=== PATIENT | female | born 1980 | race Caucasian/White ===

== ENCOUNTER 2017-07-14 14:16 | Emergency (ER) | payer OTHER ==
--- NOTE | 2017-07-14 14:23 | ED Physician Documentation ---
PD HPI NVD - History obtained from History obtained from: Patient - History of Present Illness Timing - onset: How many days ago (2) Timing - duration: Days (2) Timing - details: Abrupt onset, Still present (though improving today, with still mild symtpoms.) Associated symptoms: Abdominal pain (crampy intermittent), Loss of appetite. No : Fever, Hematemesis, Melena, Near syncope / syncope Contributing factors: No: Sick contact, Bad food, Travel, Recent antibiotics Worsened by: Eating Similar symptoms before: Has not had sx before Recently seen: Not recently seen Review of Systems Constitutional: reports: Myalgias. denies: Fever, Chills Nose: denies: Rhinorrhea / runny nose, Congestion Throat: denies: Sore throat Cardiac: denies: Chest pain / pressure, Palpitations Respiratory: denies: Dyspnea, Cough GI: reports: Abdominal Pain, Nausea, Vomiting, Diarrhea. denies: Hematemesis, Bloody / black stool : denies: Dysuria, Frequency PD PAST MEDICAL HISTORY - Past Medical History Cardiovascular: None Respiratory: None Neuro: None GI: GERD - Past Surgical History Past Surgical History: Yes - Present Medications Home Medications: Ambulatory Orders Medication Instructions Recorded Confirmed Amoxicillin 500 mg PO TID #20 capsule 02/27/16 HYDROcod/ACETAM 5/325 [Ava 5/325] 1 - 2 ea PO Q6H PRN #15 tablet 02/27/16 raNITIdine HCl [Ranitidine HCl] 02/27/16 Diphenoxylate HCl/Atropine 1 each PO Q6H PRN #15 tablet 07/14/17 [Diphenoxylate-Atrop 2.5-0.025] HYDROcod/ACETAM 5/325 [Ava 5/325] 1 tab PO Q6H PRN #12 tablet 07/14/17 Ondansetron Odt [Zofran] 4 mg TL Q6H PRN #10 tablet 07/14/17 - Allergies Allergies/Adverse Reactions: Allergies Allergy/AdvReac Type Severity Reaction Status Date / Time No Known Drug Allergies Allergy Verified 07/14/17 14:28 - Social History Does the pt smoke?: Yes Smoking Status: Current every day smoker Does the pt drink ETOH?: Yes Does the pt have substance abuse?: No - POLST Patient has POLST: No PD ED PE NORMAL - Vitals Vital signs reviewed: Yes - General General: Alert and oriented X 3, No acute distress, Well developed/nourished - HEENT HEENT: Ears normal, Moist mucous membranes, Pharynx benign - Neck Neck: Supple, no meningeal sign, No adenopathy - Cardiac Cardiac: RRR, No murmur - Respiratory Respiratory: Clear bilaterally - Abdomen Abdomen: Normal bowel sounds, Soft, Non tender, Non distended - Back Back: No CVA TTP - Derm Derm: Normal color, Warm and dry - Neuro Neuro: Alert and oriented X 3, No motor deficit, Normal speech Results - Vitals Vitals: Oxygen O2 Source Room air PD MEDICAL DECISION MAKING - ED course Complexity details: considered differential (patient feeling improved today with some symptoms and is okay with PO meds and Toradol. Does not feel she needs IV. ), d/w patient Departure - Departure Disposition: 01 Home, Self Care Clinical Impression: Nausea vomiting and diarrhea Condition: Stable Record reviewed to determine appropriate education?: Yes Instructions: ED Nausea Vomiting Prescriptions: Diphenoxylate HCl/Atropine [Diphenoxylate-Atrop 2.5-0.025] 1 each PO Q6H PRN # 15 tablet PRN Reason: Diarrhea HYDROcod/ACETAM 5/325 [Ava 5/325] 1 tab PO Q6H PRN #12 tablet PRN Reason: Pain Ondansetron Odt [Zofran] 4 mg TL Q6H PRN #10 tablet PRN Reason: Nausea / Vomiting Comments: Presuming this is a food poisoning or stomach flu then this should last just a couple of days. Use ondansetron if needed for nausea and diphenoxylate if needed for diarrhea. Add Tylenol or hydrocodone if needed for cramps and pains. Drink lots of fluids and rehydrate slowly. [place] food initially and progress as able. Recheck if not improved over another 1-2 days at most. Return if worsening pain, pain localizing to more particular area, high fevers, bloody stool, other concerns. Discharge Date/Time: 07/14/17 15:29
[2017-07-14 14:28] VITALS: BP 140/91
[2017-07-14] MEDS ORDERED: KETOROLAC 60 MG/2 ML VIAL IM STA (14:52)
[2017-07-14] MEDS ORDERED: DIPHENOX/ATROPINE 2.5/0.025 MG TABLET PO STA (14:52)
[2017-07-14] MEDS ORDERED: ONDANSETRON ODT 4 MG TABLET TL STA (14:52)
[2017-07-14] MEDS ORDERED: DIPHENOX/ATROPINE 2.5/0.025 MG TABLET PO ONE (15:27)
[2017-07-14] MEDS ORDERED: ONDANSETRON ODT 4 MG TABLET ONE (15:28)
[2017-07-14] MEDS ORDERED: KETOROLAC 30 MG/ML VIAL ONE (15:28)
== END 2017-07-14 15:29 | disposition home or self-care (01) ==
LOC: ED 14:16
DX: R10.9 Unspecified abdominal pain (principal); R11.2 Nausea with vomiting, unspecified; R19.7 Diarrhea, unspecified; K21.9 Gastro-esophageal reflux disease without esophagitis; F17.200 Nicotine dependence, unspecified, uncomplicated
CPT/HCPCS: 96372; 99283; 99284; A9270; Q0162

== ENCOUNTER 2017-12-18 18:21 | Emergency (ER) | payer OTHER ==
[2017-12-18 18:32] VITALS: BP 136/81
[2017-12-18] MEDS ORDERED: AZITHROMYCIN 250 MG TABLET PO STA (20:22)
--- NOTE | 2017-12-18 20:24 | ED Physician Documentation ---
PD HPI HEENT - Stated complaint Stated Complaint: POSS EAR INF - Chief complaint Chief Complaint: Heent - History obtained from History obtained from: Patient - History of Present Illness Timing - duration: Days (2) Timing - details: Still present Location: Right ear Associated symptoms: Headache Similar symptoms before: Has not had sx before - Treatment prior to arrival Treatment prior to arrival: She has taken Tylenol and ibuprofen without relief. - Additional information Additional information: The patient is a 37-year-old female who presents with right earache that started 2 days ago and has become worse today. She reports associated headache. She denies fever, sore throat, cough, or vomiting. She denies history of similar symptoms in the past. She has been using Tylenol and ibuprofen without relief. Review of Systems Constitutional: denies: Fever Eyes: denies: Irritation Ears: reports: Ear pain (Right ear.) Nose: denies: Congestion Throat: denies: Sore throat Cardiac: denies: Chest pain / pressure Respiratory: denies: Dyspnea, Cough GI: denies: Abdominal Pain, Nausea, Vomiting : denies: Dysuria Skin: denies: Rash Musculoskeletal: denies: Neck pain, Back pain Neurologic: reports: Headache (mild). denies: Focal weakness, Numbness PD PAST MEDICAL HISTORY - Past Medical History Cardiovascular: None Respiratory: None Neuro: None GI: GERD - Past Surgical History Past Surgical History: Yes - Present Medications Home Medications: Ambulatory Orders Medication Instructions Recorded Confirmed raNITIdine HCl [Ranitidine HCl] 02/27/16 Azithromycin [Zithromax] 250 mg PO DAILY #6 tablet 12/18/17 Loratadine [Claritin] 12/18/17 - Allergies Allergies/Adverse Reactions: Allergies Allergy/AdvReac Type Severity Reaction Status Date / Time No Known Drug Allergies Allergy Verified 07/14/17 14:28 - Social History Does the pt smoke?: Yes Smoking Status: Current every day smoker Does the pt drink ETOH?: Yes Does the pt have substance abuse?: No - POLST Patient has POLST: No PD ED PE NORMAL - Vitals Vital signs reviewed: Yes (borderline hypertension initially.) - General General: Alert and oriented X 3, Well developed/nourished - HEENT HEENT: Atraumatic, EOMI, Pharynx benign, Other (There is mild erythema of the right tympanic membrane. Left tympanic membrane is clear.) - Neck Neck: Supple, no meningeal sign, No adenopathy, No JVD - Cardiac Cardiac: RRR, No murmur - Respiratory Respiratory: No respiratory distress, Clear bilaterally - Abdomen Abdomen: Soft, Non tender - Back Back: No CVA TTP - Derm Derm: No rash - Extremities Extremities: No edema, No calf tenderness / cord - Neuro Neuro: Alert and oriented X 3, Normal speech Results - Vitals Vitals: Vital Signs - 24 hr 12/18/17 18:26 Temperature 36.3 C L Heart Rate 89 Respiratory 16 Rate Blood Pressure 136/81 H O2 Saturation 98 Oxygen O2 Source Room air PD MEDICAL DECISION MAKING - ED course Complexity details: considered differential, d/w patient ED course: The patient's presentation is most consistent with acute right otitis media. Her clinical assessment does not suggest meningitis, pharyngitis, peritonsillar abscess, or mastoiditis. Treatment in the emergency department included administration of Zithromax 500 mg orally. She is being discharged with prescription for Zithromax. I discussed with her the expected course of illness , antibiotic treatment and outpatient follow-up, as well as potentially worrisome signs or symptoms that should prompt reevaluation in the emergency department. Departure - Departure Disposition: 01 Home, Self Care Clinical Impression: Right otitis media Qualifiers: Otitis media type: suppurative Chronicity: acute Recurrence: not specified as recurrent Spontaneous tympanic membrane rupture: without spontaneous rupture Qualified Code(s): H66.001 - Acute suppurative otitis media without spontaneous rupture of ear drum, right ear Condition: Stable Instructions: ED Otitis Media Acute Adult Follow-Up: [facility] [Provider Group] Prescriptions: Azithromycin [Zithromax] 250 mg PO DAILY #6 tablet Comments: Take Zithromax daily as prescribed. You can use ibuprofen, up to 800 mg 3 times daily. He can also use Tylenol up to 650 mg every 4 hours if needed for pain or discomfort. Follow up with your primary physician within 2 weeks. Call to schedule appointment. Return to the emergency department if you develop increasing headache, increasing pain, or otherwise worsening symptoms. Discharge Date/Time: 12/18/17 20:30
== END 2017-12-18 20:30 | disposition home or self-care (01) ==
LOC: ED 18:21
DX: H66.001 Acute suppurative otitis media without spontaneous rupture of ear drum, right ear (principal); F17.200 Nicotine dependence, unspecified, uncomplicated
CPT/HCPCS: 99283; A9270

== ENCOUNTER 2019-01-17 01:26 | Emergency (ER) | payer OTHER ==
--- NOTE | 2019-01-17 01:46 | ED Physician Documentation ---
PD HPI ABD PAIN - Stated complaint Stated Complaint: ABD PX - Chief complaint Chief Complaint: Abd Pain - History obtained from History obtained from: Patient - History of Present Illness Timing - onset: Last night (about 8 pm) Timing - duration: Hours (5-6) Timing - details: Abrupt onset, Still present Quality: Sharp, Pain Location: RUQ Radiation: Upper back Improved by: No: Laying still, Meds (tried Ibuprofen without improvement) Worsened by: Moving, Palpation. No: Breathing Associated symptoms: Nausea, Vomiting. No: Fever, Diarrhea, Constipation, Dysuria Similar symptoms before: Has not had sx before Recently seen: Not recently seen Review of Systems Constitutional: denies: Fever Nose: denies: Rhinorrhea / runny nose, Congestion Throat: denies: Sore throat Cardiac: denies: Chest pain / pressure Respiratory: denies: Cough GI: reports: Abdominal Pain, Nausea, Vomiting. denies: Abdominal Swelling, Constipation, Diarrhea, Hematemesis : denies: Dysuria, Frequency, Discharge, Missed period Skin: denies: Rash Neurologic: denies: Focal weakness, Near syncope Endocrine: denies: Weight loss Immunocompromised: denies: Immunocompromised PD PAST MEDICAL HISTORY - Past Medical History Cardiovascular: None Respiratory: None GI: GERD - Past Surgical History Past Surgical History: Yes - Present Medications Home Medications: Ambulatory Orders Medication Instructions Recorded Confirmed raNITIdine HCl [Ranitidine HCl] 02/27/16 Azithromycin [Zithromax] 250 mg PO DAILY #6 tablet 12/18/17 Loratadine [Claritin] 12/18/17 Dicyclomine [Bentyl] 10 mg PO QID PRN #15 capsule 01/17/19 Ondansetron Odt [Zofran] 4 mg TL Q6H PRN #10 tablet 01/17/19 Oxycodone HCl/Acetaminophen 1 each PO Q6H PRN #14 tablet 01/17/19 [Percocet 5-325 mg Tablet] - Allergies Allergies/Adverse Reactions: Allergies Allergy/AdvReac Type Severity Reaction Status Date / Time No Known Drug Allergies Allergy Verified 07/14/17 14:28 - Social History Does the pt smoke?: Yes Smoking Status: Current every day smoker Does the pt drink ETOH?: Yes Does the pt have substance abuse?: No - POLST Patient has POLST: No PD ED PE NORMAL - Vitals Vital signs reviewed: Yes - General General: Alert and oriented X 3, Well developed/nourished, Other (appears uncomfortable) - HEENT HEENT: Pharynx benign - Neck Neck: Supple, no meningeal sign, No adenopathy - Cardiac Cardiac: RRR, No murmur - Respiratory Respiratory: Clear bilaterally - Abdomen Abdomen: Soft, No organomegaly, Other (obese, tender RUQ with positive [place] sign. No rebound but does have some percussion tenderness.) - Back Back: No CVA TTP - Derm Derm: Normal color, Warm and dry - Neuro Neuro: Alert and oriented X 3, No motor deficit, Normal speech Results - Vitals Vitals: Vital Signs - 24 hr 01/17/19 01/17/19 01:29 03:57 Temperature 36.3 C L 36.4 C L Heart Rate 87 76 Respiratory 18 18 Rate Blood Pressure 140/74 H 124/75 O2 Saturation 100 98 Oxygen O2 Source Room air - Labs Labs: Laboratory Tests 01/17/19 01/17/19 01/17/19 01:43 01:43 02:45 WBC 10.8 RBC 4.39 Hgb 12.5 Hct 36.8 L MCV 83.8 MCH 28.6 MCHC 34.1 RDW 14.3 Plt Count 283 MPV 8.1 Neut # (Auto) 8.5 H Lymph # (Auto) 1.2 L [place] # (Auto) 0.6 Eos # (Auto) 0.2 Baso # (Auto) 0.3 H Absolute Nucleated RBC 0.00 Nucleated RBC % 0.0 Sodium 138 Potassium 4.0 Chloride 102 Carbon Dioxide 25 Anion Gap 11.0 BUN 15 Creatinine 0.8 Estimated GFR (MDRD) 80 L Glucose 151 H Calcium 9.1 Total Bilirubin 0.4 AST 16 ALT 13 Alkaline Phosphatase 92 Total Protein 7.4 Albumin 3.9 Globulin 3.5 Albumin/Globulin Ratio 1.1 Lipase 44 Urine Color YELLOW Urine Clarity CLEAR Urine pH 7.0 Ur Specific [place] 1.010 Urine Protein NEGATIVE Urine Glucose (UA) NEGATIVE Urine Ketones NEGATIVE Urine Occult Blood NEGATIVE Urine Nitrite NEGATIVE Urine Bilirubin NEGATIVE Urine Urobilinogen 0.2 (NORMAL) Ur Leukocyte Esterase NEGATIVE Ur Microscopic Review NOT INDICATED Urine Culture Comments NOT INDICATED Urine HCG, Qual 01/17/19 02:45 WBC RBC Hgb Hct MCV MCH MCHC RDW Plt Count MPV Neut # (Auto) Lymph # (Auto) [place] # (Auto) Eos # (Auto) Baso # (Auto) Absolute Nucleated RBC Nucleated RBC % Sodium Potassium Chloride Carbon Dioxide Anion Gap BUN Creatinine Estimated GFR (MDRD) Glucose Calcium Total Bilirubin AST ALT Alkaline Phosphatase Total Protein Albumin Globulin Albumin/Globulin Ratio Lipase Urine Color Urine Clarity Urine pH Ur Specific [place] 1.010 Urine Protein Urine Glucose (UA) Urine Ketones Urine Occult Blood Urine Nitrite Urine Bilirubin Urine Urobilinogen Ur Leukocyte Esterase Ur Microscopic Review Urine Culture Comments Urine HCG, Qual NEGATIVE - Rads (name of study) RUQ Abd U/S Radiology: Prelim report reviewed (gallbladder wall thickening with gallstones. Duct mildly dilated 5 mm), See rad report PD MEDICAL DECISION MAKING - ED course Complexity details: re-evaluated patient (Pain improved and about gone after meds. Labs are good. Presume had small stone/sludge causing obstruction which is now better. Discussed with her either temp better and to return if worse again, or seee pMD if recurrent or not fully improved. ), considered differential (Consider gallbladder, pancreatitis, duodenitis, gastritis. Will get labs and U/S. To give IV meds for pain and nausea. ), d/w patient Departure - Departure Disposition: 01 Home, Self Care Clinical Impression: Biliary colic Abdominal pain Qualifiers: Abdominal location: right upper quadrant Qualified Code(s): R10.11 - Right upper quadrant pain Cholecystitis, acute with cholelithiasis Qualifiers: Biliary obstruction: without biliary obstruction Qualified Code(s): K80.00 - Calculus of gallbladder with acute cholecystitis without obstruction Condition: Stable Record reviewed to determine appropriate education?: Yes Instructions: ED Gallstone W Biliary Colic Follow-Up: [facility] [Primary Care Provider] - Prescriptions: Dicyclomine [Bentyl] 10 mg PO QID PRN #15 capsule PRN Reason: Abdominal Pain Ondansetron Odt [Zofran] 4 mg TL Q6H PRN #10 tablet PRN Reason: Nausea / Vomiting Oxycodone HCl/Acetaminophen [Percocet 5-325 mg Tablet] 1 each PO Q6H PRN #14 tablet PRN Reason: pain Comments: Your ultrasound shows some gallstones and also some thickening of the gallbladder and slight enlargement of the bile duct. This suggests some sludging or passing of a small stone into the bile duct and inflammation of the gallbladder. Given that your pain is better and your blood tests are good, it does not sound like it is still clogged. Stay well-hydrated through the day today. Avoid fatty foods. Use some Tylenol or ibuprofen if needed for mild pains. Ondansetron if needed for nausea. Percocet if needed for worse pain. You could also try dicyclomine which is an antispasmodic, to help with stomach pains from the gallbladder spasms. Follow-up with your primary care if recurrent pains over the next few days return to the ER sooner if much worse. Also return if any fevers, repetitive vomiting, other concerns. If this episode improves and stays well, then you would just see how you do in the near future regarding other episodes to decide whether or to discuss with the surgeon about gallbladder removal. Discharge Date/Time: 01/17/19 04:00
[2019-01-17 01:54] LABS: BASOPHILS # (AUTO) 0.3 10^3/uL (0.0-0.1); BASOPHILS % (AUTO) 2.3 %; EOSINOPHILS # (AUTO) 0.2 10^3/uL (0.0-0.7); EOSINOPHILS % (AUTO) 1.9 %; HGB - HEMOGLOBIN 12.5 g/dL (12.0-16.0); LYMPHOCYTES # (AUTO) 1.2 10^3/uL (1.5-3.5); LYMPHOCYTES % (AUTO) 11.2 %; MEAN CORPUSCULAR HEMOGLOBIN 28.6 pg (27.0-31.0); MEAN CORPUSCULAR HGB CONC 34.1 g/dL (32.0-36.0); MEAN CORPUSCULAR VOLUME 83.8 fL (81.0-99.0); MEAN PLATELET VOLUME 8.1 fL (7.9-10.8); MONOCYTES # (AUTO) 0.6 10^3/uL (0.0-1.0); MONOCYTES % (AUTO) 5.2 %; NEUTROPHILS # (AUTO) 8.5 10^3/uL (1.5-6.6); NEUTROPHILS % (AUTO) 79.4 %; PLT - PLATELET COUNT 283 10^3/uL (130-450); RED BLOOD COUNT 4.39 10^6/uL (4.20-5.40); RED CELL DISTRIBUTION WIDTH 14.3 % (12.0-15.0); WHITE BLOOD COUNT 10.8 x10^3/uL (4.8-10.8)
[2019-01-17] MEDS ORDERED: SODIUM CHLORIDE 0.9% 1,000 ML IV ONE (01:57)
[2019-01-17] MEDS ORDERED: KETOROLAC 15 MG/ML VIAL IVP STA (01:57)
[2019-01-17] MEDS ORDERED: MORPHINE 10 MG/ML VIAL IVP STA (01:57)
[2019-01-17] MEDS ORDERED: ONDANSETRON 4 MG/2 ML VIAL IVP STA (01:57)
[2019-01-17] MEDS ORDERED: FAMOTIDINE 20 MG/2 ML VIAL IVP STA (01:58)
[2019-01-17 02:04] LABS: ALBUMIN 3.9 g/dL (3.2-5.5); ALBUMIN/GLOBULIN RATIO 1.1 (1.0-2.2); BILIRUBIN,TOTAL 0.4 mg/dL (0.2-1.0); CALCIUM 9.1 mg/dL (8.5-10.3); CREATININE 0.8 mg/dL (0.4-1.0); TOTAL PROTEIN 7.4 g/dL (6.7-8.2)
[2019-01-17 02:50] LABS: BILIRUBIN,URINE NEGATIVE (NEGATIVE); GLUCOSE, URINE (UA) NEGATIVE (NEGATIVE); KETONES,URINE (UA) NEGATIVE (NEGATIVE); LEUKOCYTE ESTERASE, URINE NEGATIVE (NEGATIVE); NITRITE,URINE NEGATIVE (NEGATIVE); OCCULT BLOOD,URINE NEGATIVE (NEGATIVE); PROTEIN,URINE NEGATIVE (NEGATIVE); UROBILINOGEN,URINE 0.2 (NORMAL) E.U./dL (NORMAL)
--- NOTE | 2019-01-17 02:51 | Ultrasound Report ---
Reason: RUQ pain, radiating to back; onset this evening Procedure Date: 01/17/2019 Accession Number: [id number] / [id number] Procedure: US - Abdomen Limited CPT Code: FULL RESULT: EXAM: ABDOMEN ULTRASOUND LIMITED, RUQ EXAM DATE: 01/17/2019 02:25 AM. CLINICAL HISTORY: RUQ pain, radiating to back; onset this evening. COMPARISON: None. TECHNIQUE: Real-time scanning was performed with static images obtained. FINDINGS: Liver: Liver is enlarged and echogenic, compatible with fatty infiltration. It measures 21.8 cm. Main portal vein flow: Hepatopetal. Gallbladder: Cholelithiasis. Gallbladder wall thickening. Biliary System: CBD measures 7 mm. No intrahepatic or extrahepatic ductal dilatation. Other: No free fluid. No right hydronephrosis. IMPRESSION: Cholelithiasis, with gallbladder wall thickening and prominence of the common bile duct, likely representing acute cholecystitis with possible choledocholithiasis. Fatty infiltration of the liver. RADIA
[2019-01-17 02:52] LABS: CLARITY,URINE CLEAR (CLEAR); HCG UR QUAL NEGATIVE
[2019-01-17] MEDS ORDERED: ONDANSETRON ODT 4 MG Prepack 2 TL PRN (03:40)
[2019-01-17] MEDS ORDERED: oxyCODONE/ACET 5/325 Prepack 4 PO STA (03:40)
[2019-01-17 03:58] VITALS: BP 124/75
== END 2019-01-17 04:00 | disposition home or self-care (01) ==
LOC: ED 01:26
DX: K80.00 Calculus of gallbladder with acute cholecystitis without obstruction (principal); F17.200 Nicotine dependence, unspecified, uncomplicated
CPT/HCPCS: 36415; 76705; 80053; 81001; 81003; 81025; 83690; 85025; 87086; 99283; 99284

== ENCOUNTER 2020-05-26 13:48 | Emergency (ER) | payer OTHER ==
--- NOTE | 2020-05-26 15:50 | ED Physician Documentation ---
PD HPI SKIN - Stated complaint Stated Complaint: ABCESS ON BACK - History obtained from History obtained from: Patient - History of Present Illness Timing - onset: How many days ago (3) Timing - duration: Days (3) Timing - details: Gradual onset, Still present Location: Other (right buttock) Quality / character: Painful, Swelling. No: Draining (was not draining until in waiting room, started to drain some.) Associated symptoms: No: Fever, Myalgias, N/V/D Recently seen: Not recently seen Review of Systems Constitutional: denies: Fever, Chills GI: denies: Nausea, Vomiting, Diarrhea Skin: reports: Lesions PD PAST MEDICAL HISTORY - Past Medical History Cardiovascular: None Respiratory: None Endocrine/Autoimmune: None GI: GERD EQUITIES TRADER: Other : None HEENT: None Psych: None Musculoskeletal: None Derm: None - Past Surgical History Past Surgical History: Yes - Present Medications Home Medications: Ambulatory Orders Medication Instructions Recorded Confirmed raNITIdine HCL [Ranitidine HCl] 02/27/16 Azithromycin [Zithromax] 250 mg PO DAILY #6 tablet 12/18/17 Loratadine [Claritin] 12/18/17 Dicyclomine [Bentyl] 10 mg PO QID PRN #15 capsule 01/17/19 Ondansetron Odt [Zofran] 4 mg TL Q6H PRN #10 tablet 01/17/19 Oxycodone HCl/Acetaminophen 1 each PO Q6H PRN #14 tablet 01/17/19 [Percocet 5-325 mg Tablet] - Allergies Allergies/Adverse Reactions: Allergies Allergy/AdvReac Type Severity Reaction Status Date / Time No Known Drug Allergies Allergy Verified 07/14/17 14:28 - Social History Does the pt smoke?: Yes Smoking Status: Current every day smoker Does the pt drink ETOH?: Yes Does the pt have substance abuse?: No - Immunizations Immunizations: TDAP current <10years, Other immun current - POLST Patient has POLST: No PD ED PE NORMAL - Vitals Vital signs reviewed: Yes - General General: Alert and oriented X 3, Well developed/nourished - Neck Neck: Supple, no meningeal sign, No adenopathy - Cardiac Cardiac: RRR, No murmur - Respiratory Respiratory: Clear bilaterally - Derm Derm: Normal color, Warm and dry - Extremities Extremities: Other (right buttock with 3-4 cm firm fluctuant and red/tender area. ) - Neuro Neuro: Alert and oriented X 3, No motor deficit, Normal speech Results - Vitals Vitals: Oxygen O2 Source Room air Procedures - Abscess I&D (location) right buttock Preparation: Lidocaine 1%, With epi Incision: Incised with scalpel, Purulent drainage, Irrigated. No: Packed, Culture obtained Other: Pt tolerated well, Dressing applied, Antibiotic prescribed PD MEDICAL DECISION MAKING - ED course Complexity details: considered differential, d/w patient Departure - Departure Disposition: 01 Home, Self Care Clinical Impression: Abscess of right buttock Condition: Stable
[2020-05-26] MEDS ORDERED: SULFAMETH/TRIMETH DS 800/160 MG TABLET PO ONE (16:10)
[2020-05-26] MEDS ORDERED: ACETAMINOPHEN 325 MG TABLET PO ONE (16:11)
[2020-05-26] MEDS ORDERED: IBUPROFEN 600 MG TABLET PO ONE (16:11)
== END 2020-05-26 16:37 | disposition home or self-care (01) ==
LOC: ED 13:48
DX: L02.31 Cutaneous abscess of buttock (principal); F17.200 Nicotine dependence, unspecified, uncomplicated
CPT/HCPCS: 10060; 99282; 99283; A9270

== ENCOUNTER 2020-07-11 13:11 | Outpatient (CLI) | payer OTHER ==
--- NOTE | 2020-07-14 13:22 | Mammography Report ---
BILATERAL DIGITAL SCREENING MAMMOGRAM 3D/2D: 07/11/2020 CLINICAL: Baseline exam. Routine screening. No prior exams were available for comparison. The tissue of both breasts is heterogeneously dense. T his may lower the sensitivity of mammography. There is an oval focal asymmetry in the right breast at 5 o'clock anterior depth. There also is a focal asymmetry in the right breast at 3 o'clock anterior depth. No other significant masses, calcifications, or other findings are seen in either breast. IMPRESSION: INCOMPLETE: NEEDS ADDITIONAL IMAGING EVALUATION The oval focal asymmetry in the right breast at 5 o'clock anterior depth is indeterminate. Additiona l views with possible ultrasound are recommended. The focal asymmetry in the right breast at 3 o'clock anterior depth is indeterminate. Additional vie ws with possible ultrasound are recommended. This exam was interpreted at Station ID: [id number]. NOTE: For mammograms, a report in lay terms will be sent to the patient. Approximately 15% of breast malignancies will not be visualized mammographically. In the management of a palpable breast mass, a negative mammogram must not discourage biopsy of a clinically suspicious lesion. Electronically Signed By: Horacio [email or web address]/[email or web address]:07/11/2020 15:07:17 ACR BI-RADS Category 0: Incomplete 3340F PARENCHYMAL PATTERN: (D) - The breast(s) demonstrate(s) heterogeneously dense fibroglandular jaylon walker. BI-RADS CATEGORY: (0) - 0 Mammo and US [id number] Immediate follow-up LATERALITY: (R)
== END 2020-07-11 13:12 | disposition home or self-care (01) ==
LOC: DI.N 13:11
DX: Z12.31 Encounter for screening mammogram for malignant neoplasm of breast (principal); R92.8 Other abnormal and inconclusive findings on diagnostic imaging of breast

== ENCOUNTER 2020-10-13 09:14 | Outpatient (CLI) | payer OTHER ==
--- NOTE | 2020-10-14 12:09 | Mammography Report ---
UNILATERAL RIGHT DIGITAL DIAGNOSTIC MAMMOGRAM 3D/2D: 10/13/2020 CLINICAL: Patient returns today to evaluate asymmetries in the right breast. Comparison is made to exam dated: 07/11/2020 mammogram - [facility]. There are sc attered fibroglandular elements in right breast. There is a focal asymmetry in the right breast at 5 o'clock anterior depth. This is less prominent. There also is a focal asymmetry in the right breast at 3 o'clock anterior depth. This is less promin ent. No other significant masses or calcifications are seen in the breast. IMPRESSION: INCOMPLETE: NEEDS ADDITIONAL IMAGING EVALUATION Possible focal asymmetry in the right breast at 5 o'clock anterior depth most likely is fibroglandula r tissue and is indeterminate. -A targeted ultrasound is recommended and will immediately follow. Possible focal asymmetry in the right breast at 3 o'clock anterior depth most likely is fibroglandula r tissue and is indeterminate. -A targeted ultrasound is recommended and will immediately follow. This exam was interpreted at Station ID: [id number]. NOTE: For mammograms, a report in lay terms will be sent to the patient. Approximately 15% of breast malignancies will not be visualized mammographically. In the management of a palpable breast mass, a negative mammogram must not discourage biopsy of a clinically suspicious lesion. Electronically Signed By: Shlomo Morris M.D. slc/:10/13/2020 12:33:21 ACR BI-RADS Category 0: Incomplete 3340F PARENCHYMAL PATTERN: (A) - The breast(s) demonstrate(s) scattered fibroglandular densities. BI-RADS CATEGORY: (0) - 0 Ultrasound [id number] Immediate follow-up LATERALITY: (B)
--- NOTE | 2020-10-14 12:09 | Ultrasound Report ---
LIMITED ULTRASOUND OF RIGHT BREAST: 10/13/2020 CLINICAL: Patient returns today to evaluate two focal asymmetries in the right breast. Comparison is made to exams dated: 10/13/2020 mammogram and 07/11/2020 mammogram - [facility]. Real-time ultrasound of the right breast 3-5 o'clock region was performed. Erickson scale images of the real-time examination were reviewed. No significant abnormalities were seen sonographically in the right breast. IMPRESSION: NEGATIVE There is no sonographic evidence of malignancy in the region of possible focal asymmetries. A 1 year screening mammogram is recommended. Exam findings were conveyed to the patient. This exam was interpreted at Station ID: [id number]. Electronically Signed By: Shlomo Morris M.D. slc/:10/13/2020 12:34:33 Ultrasound BI-RADS: 1 Negative BI-RADS CATEGORY: (1) - 1 RECOMMENDATION: (ANNUAL) - Recommend routine annual screening mammography. [id number] 1 year screening LATERALITY: (B)
== END 2020-10-13 09:15 | disposition home or self-care (01) ==
LOC: DI 09:14
PROVIDERS: ATTEND Family Medicine
DX: R92.8 Other abnormal and inconclusive findings on diagnostic imaging of breast (principal)

== ENCOUNTER 2021-01-08 08:00 | Outpatient (CLI) | payer OTHER ==
[2021-01-08 21:38] LABS: CHLAMYDIA TRACHOMATIS DNA NEGATIVE (NEGATIVE); NEISSERIA GONORRHOEAE DNA NEGATIVE (NEGATIVE); TRICHOMONAS VAGINALIS DNA NEGATIVE (NEGATIVE)
== END 2021-01-08 23:59 | disposition home or self-care (01) ==
LOC: LAB.WC 08:00
PROVIDERS: ATTEND Obstetrics & Gynecology
DX: N92.0 Excessive and frequent menstruation with regular cycle (principal); Z11.3 Encounter for screening for infections with a predominantly sexual mode of transmission
CPT/HCPCS: 87491; 87591; 87661

== ENCOUNTER 2021-01-30 15:04 | Emergency (ER) | payer OTHER ==
[2021-01-30] MEDS ORDERED: PENICILLIN VK 250 MG TABLET PO STA (15:30)
--- NOTE | 2021-01-30 15:31 | ED Physician Documentation ---
History of Present Illness - Stated complaint Stated Complaint: RIGHT SIDE TOOTH PX - Chief complaint Chief Complaint: Heent - History obtained from History obtained from: Patient - History of Present Illness Timing: Today Pain level max: 0 Pain level now: 0 - Additonal information Additional information: Patient is a 40-year-old female who presents to the emergency department with right lower molar pain that started today. She was having some pain on her upper right side a few days ago, saw her dentist and was started on azithromycin. Today she noticed swelling along the lower jawline and pain. Worse with eating and drinking. Nothing makes it better. Review of Systems Constitutional: denies: Fever, Chills Nose: denies: Rhinorrhea / runny nose Cardiac: denies: Chest pain / pressure GI: denies: Vomiting, Diarrhea Skin: denies: Rash Musculoskeletal: denies: Neck pain, Back pain Neurologic: denies: Headache PD PAST MEDICAL HISTORY - Past Medical History Cardiovascular: None Respiratory: None Endocrine/Autoimmune: None GI: GERD BUYER AGENT: Other : None HEENT: None Psych: None Musculoskeletal: None Derm: None - Past Surgical History Past Surgical History: Yes - Present Medications Home Medications: Ambulatory Orders Medication Instructions Recorded Confirmed raNITIdine HCL [Ranitidine HCl] 02/27/16 Azithromycin [Zithromax] 250 mg PO DAILY #6 tablet 12/18/17 Loratadine [Claritin] 12/18/17 Dicyclomine [Bentyl] 10 mg PO QID PRN #15 capsule 01/17/19 Ondansetron Odt [Zofran] 4 mg TL Q6H PRN #10 tablet 01/17/19 Oxycodone HCl/Acetaminophen 1 each PO Q6H PRN #14 tablet 01/17/19 [Percocet 5-325 mg Tablet] HYDROcod/ACETAM 5/325 [Spencer 5/325] 1 - 2 ea PO Q6H PRN #14 tablet 01/30/21 Penicillin V Potassium 500 mg PO Q6HR #40 tablet 01/30/21 - Allergies Allergies/Adverse Reactions: Allergies Allergy/AdvReac Type Severity Reaction Status Date / Time No Known Drug Allergies Allergy Verified 01/30/21 15:14 - Social History Does the pt smoke?: Yes Smoking Status: Current every day smoker Does the pt drink ETOH?: Yes Does the pt have substance abuse?: No - Immunizations Immunizations: TDAP current <10years, Other immun current - POLST Patient has POLST: No PD ED PE NORMAL - Vitals Vital signs reviewed: Yes - General General: Alert and oriented X 3, No acute distress - HEENT HEENT: Moist mucous membranes, Other (R lower mandible - TTP near the back molar. No abscess visible. no trismus. normal phonation. No ludwigs angina) - Neck Neck: Supple, no meningeal sign - Cardiac Cardiac: RRR, Strong equal pulses - Respiratory Respiratory: No respiratory distress, Clear bilaterally - Derm Derm: Warm and dry - Neuro Neuro: Alert and oriented X 3 - Psych Psych: Normal mood, Normal affect Results - Vitals Vitals: Vital Signs - 24 hr 01/30/21 15:10 Temperature 36.1 C L Heart Rate 90 Respiratory 16 Rate Blood Pressure 125/77 O2 Saturation 98 Oxygen O2 Source Room air PD MEDICAL DECISION MAKING - ED course Complexity details: considered differential, d/w patient ED course: Patient with dental caries and dental pain. No drainable abscess. Normal phonation. No trismus. Will place on penicillin and pain medication for home. I am prescribing a short course of short-acting opioid pain medication for this patient. 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 I have discussed that the opioids are for short term therapy only, and will not be refilled from the ED. patient counseled regarding signs and symptoms for which I believe and urgent re-evaluation would be necessary. Patient with good understanding of and agreement to plan and is comfortable going home at this time This document was made in part using voice recognition software. While efforts are made to proofread this document, sound alike and grammatical errors may occur. Departure - Departure Disposition: 01 Home, Self Care Clinical Impression: Pain, dental Condition: Good Instructions: ED Tooth Pain Follow-Up: FELICE MATT PA-C [Primary Care Provider] - Prescriptions: Penicillin V Potassium 500 mg PO Q6HR #40 tablet HYDROcod/ACETAM 5/325 [Spencer 5/325] 1 - 2 ea PO Q6H PRN #14 tablet PRN Reason: Pain Comments: Take all antibiotics until gone. Follow-up with your dentist on Tuesday for further care. Return if you worsen. I am prescribing a short course of narcotic pain medication for you. These are potentially dangerous and addictive medications that should be used carefully. These medications may constipate you. Take an hgbd-geu-czjxadv stool softener (docusate) twice daily with plenty of water while taking these medications. If you go 24 hours without a bowel movement, take oogj-gab-carolcp miralax, per package instructions. Do not drink or drive while taking these medications. If you received narcotic or sedating medications while in the emergency department, do not drive for 24 hours. Store this medication in a safe, secure place and out of reach of children. It is a violation of federal law to give or sell this medication to another person or to use in a manner other than prescribed. The ED will not refill narcotic prescriptions, including prescriptions lost or stolen. To dispose of unwanted medications: 1. [facility] at [address] in [place] has a medication drop box. They accept prescription medications (in pill form) Tuesday through Tuesday 9:00 a.m. to 5:00 p.m. 2. The [facility] [employer] accepts prescription medications (in pill form only) for disposal year round. Call for more information. 3. Contact the [facility] for the next [facility] sponsored prescription drug collection event. , [phone], or [phone];
[2021-01-30 16:32] VITALS: BP 109/70
== END 2021-01-30 16:18 | disposition home or self-care (01) ==
LOC: ED 15:04
DX: K08.89 Other specified disorders of teeth and supporting structures (principal); K02.9 Dental caries, unspecified; F17.200 Nicotine dependence, unspecified, uncomplicated
CPT/HCPCS: 99282; 99284; A9270

== ENCOUNTER 2021-02-07 07:48 | Outpatient (CLI) | payer OTHER ==
--- NOTE | 2021-02-07 18:12 | Ultrasound Report ---
PROCEDURE: Pelvic w/Transvaginal INDICATIONS: DYSMENORRHEA TECHNIQUE: Real-time scanning was performed of the pelvic organs, with image documentation. Additional endovagi nal scanning was necessary due to incomplete visualization of the adnexal and endometrial structures by transabdominal scanning. COMPARISON: None. FINDINGS: No pathologic free abdominal or pelvic fluid. Uterus: Uterus is normal in size at 8.4 x 3.6 x 5.0 cm. There is a mural left mid body fibroid measu ring 3.4 x 3.1 x 3.3 cm. The endometrium measures 9.8 mm in combined thickness. There is a small ante rior endometrial polyp versus pedunculated fibroid with a feeder vessel measuring 1.2 x 0.6 cm. Ovaries: Right ovary measures 3.5 x 2.0 x 2.2 cm. Left ovary measures 4.1 x 2.7 x 2.7 cm and contain s a simple cyst of maximum diameter of 3.3 cm. IMPRESSION: 1. 3.4 cm left uterine fibroid. 2. Endometrial polyp versus pedunculated fibroid measuring 1.2 x 0.6 cm. 3. 3.3 cm left ovarian cyst. Reviewed by: Taurus Arguello MD on 02/07/2021 5:11 PM ARSEN Approved by: Taurus Arguello MD on 02/07/2021 5:11 PM ARSEN Station ID: [id number]
== END 2021-02-07 07:49 | disposition home or self-care (01) ==
LOC: DI 07:48
PROVIDERS: ATTEND Obstetrics & Gynecology
DX: N94.6 Dysmenorrhea, unspecified (principal); N92.0 Excessive and frequent menstruation with regular cycle; D25.1 Intramural leiomyoma of uterus; N83.292 Other ovarian cyst, left side

== ENCOUNTER 2021-04-21 07:25 | Day surgery (SDC) | payer OTHER ==
--- NOTE | 2021-04-21 05:53 | HISTORY & PHYSICAL EXAMINATION ---
HPI - History of Present Illness HPI Comment/Other: I: Patient is a 40-year-old G0, P0 here for preop assessment for hysteroscopy D&C and possible polypectomy. Initially seen by Dr. Paul in December 2020 with primary complaint of infertility. Reported heavy menses at time of assessment. Monthly cycles of 5 days duration. Needs to change a pad or tampon every less than 2 hours. Passes large clots about size of a quaarter. Carried extra clothing due to accidents. Plans her life around her period. Hx of anemia. Also endorses dysmenorrhea, rated 9/10 at its worse. She states this will keep her home from work. She will utilize hot water bottle or heating pad as well as 1600 mg of Motrin. Unable to conceive in prior relationship. Pattern continuing with new partner. Endorses deep dyspareunia. Hx of thickened EMS in 2006. US on 02/07/21 shows " Uterus is normal in size at 8.4 x 3.6 x 5.0 cm. There is a mural left mid body fibroid measuring 3.4 x 3.1 x 3.3 cm. The endonnetrium measures 9.8 mm in combined thickness. There is a small anterior endometrial polyp versus pedunculated fibroid with a feeder vessel measuring 1.2 x 0.6 cm. " Desires to proceed with hysteroscopy D&C. Has lost 25# since December visit. No other changes in health hx other than as noted in HPI. Allergies: No Known Allergies Medications: ACIDOPHILUS ORAL TABLET CHEWABLE (PROBIOTIC PRODUCT) QD; Route: ORAL TURMERIC CAPSULE (TURMERIC CAPS) QD VITAMIN D3 TABLET (CHOLECALCIFEROL TABS) QD MULTIVITAMIN WOMEN ORAL TABLET (MULTIPLE VITAMINS-MINERALS) QD; Route: ORAL TRULICITY 0.75 MG/0.5ML SUBCUTANEOUS SOLUTION PEN-INJECTOR (DULAGLUTIDE) Inject 0.75mg subcutaneously once weekly for diabetes; Route: SUBCUTANEOUS CLONAZEPAM 0.5 MG ORAL TABLET (CLONAZEPAM) Take one tablet by mouth twice daily as needed; Route: ORAL METFORMIN HCL ER (OSM) 1000 MG ORAL TABLET EXTENDED RELEASE 24 HOUR (METFORMIN HCL) Take 2 tables once daily; Route: ORAL LORATADINE 10 MG ORAL TABLET (LORATADINE) Take one tablet by mouth once daily for allergies; Route: ORAL OMEPRAZOLE 40 MG ORAL CAPSULE DELAYED RELEASE (OMEPRAZOLE) QD; Route: ORAL Problems: Preoperative examination (ICD-V72.84) (PCZ07-H08.818) Endometrial polyp (ICD-621.0) (EOI61-J65.0) Menorrhagia (ICD-626.2) (WAH27-A43.0) Dysmenorrhea (ICD-625.3) (FPA56-N63.6) Std screening (ICD-V74.5) (SSW05-C60.3) Vital Signs: Patient Profile: 40 Years Old Female Height: 70.5 inches Weight: 258.6 pounds BMI: 36.71 BP sittin / 74 Cuff size: large Pt. in pain? 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 Physical Constitutional: GEN: NAD HEAD: NCAT EYES: No scleral icterus or conjunctival injection CV: RRR RESP: CTAB, normal effort ABD: S&NT/ND PSYCH: appropriate affect NEURO: alert and oriented, normal gait and coordination EXT: WWP Impression & Recommendations: Problem # 1: Preoperative examination (ICD-V72.84) (BRS54-S84.818) Reviewed risks/benefits/alternatives to hysteroscopy/polpectomy Risks include, but are not limited to, bleeding, infection, damage to neatby tissue and organs. On average, expected EBL is minimal. In the event of an unanticipated blood loss, patient is willing to undergo transfusion. Risks of blood transfusion include infection as well as transfusion reaction Risk of HIV 1/2million nationwide Risk of Hepatitis 1/1 million Risks of transfusion reaction and mgt reviewed Infection risk low given that no incisions abraham be made and we will be using physiologic orifices. Will provide IV abx in the event of uterine perforation. Damage to nearby tissue and organs was reviewed with emphasis on uterine perforation and management, which can include surgical intervention based on bleeding risk. Reviewed management of complications and efforts to avoid such outcomes but reviewed that they may occur despite our best efforts. Patient agreed to the aforementioned procedure and written informed consent was obtained. Orders: PRE OP -[id number] ([id number]) PMH/PSH - Past Medical History Cardiovascular: positive: None Respiratory: positive: None Endocrine/Autoimmune: positive: Type 2 diabetes GI: positive: GERD REAL ESTATE LOAN PROCESSOR: positive: Other : positive: None HEENT: positive: Chronic vision loss Psych: positive: Anxiety Musculoskeletal: positive: None Derm: positive: None MRSA Hx?: No - Past Surgical History General: positive: Cholecystectomy Ortho: positive: Other Social & Family Hx - Social History Does the pt smoke?: Yes Smoking Status: Current every day smoker Does the pt drink ETOH?: Yes Does the pt have substance abuse?: No Substance Use and Type: Marijuana - POLST Patient has POLST: No Meds/Allgy - Home Medications Home Medications: Ambulatory Orders Medication Instructions Recorded Confirmed Loratadine [Claritin] 10 mg PO DAILY 12/18/17 04/13/21 Biotin 10,000 mcg PO DAILY 04/13/21 04/13/21 Cholecalciferol [Vitamin D3] 25 mcg PO DAILY 04/13/21 04/13/21 Lactobacillus Combination No.4 1 each PO DAILY 04/13/21 04/13/21 [Probiotic] Metformin HCl [Glumetza] 1,000 mg PO DAILY 04/13/21 04/13/21 Omeprazole 40 mg PO DAILY 04/13/21 04/13/21 Turmeric Root Extract [Turmeric] 500 mg PO DAILY 04/13/21 04/13/21 clonazePAM [KlonoPIN] 0.5 mg PO ONCE PRN 04/13/21 04/13/21 - Allergies Allergies/Adverse Reactions: Allergies Allergy/AdvReac Type Severity Reaction Status Date / Time No Known Drug Allergies Allergy Verified 01/30/21 15:14
[~2021-04-21 07:25] MED LIST: ACETAMINOPHEN 500 MG TABLET PO ONE; CELECOXIB 100 MG CAPSULE PO ONE; GABAPENTIN 400 MG CAPSULE ONE
[2021-04-21] MEDS ORDERED: LACTATED RINGERS 1,000 ML IV ONE ×2 (07:50→09:15)
--- NOTE | 2021-04-21 08:06 | ANESTHESIA ---
Pre-Anesthesia VS, & Labs - Diagnosis menorrhagia - Procedure hysteroscopy, D&C, polypectomy Vital Signs: Temp Pulse Resp BP Pulse Ox 36.5 C 88 16 130/88 H 99 04/21/21 07:40 04/21/21 07:40 04/21/21 07:40 04/21/21 07:40 04/21/21 07:40 Height: 5 ft 11 in Weight (kg): 116.8 kg Body Mass Index: 35.9 BMI Classification: Obese - NPO >8 hours - Is Patient ?: No - Lab Results Current Lab Results: Laboratory Tests 04/21/21 07:54: POC Whole Bld Glucose 88 Home Medications and Allergies Home Medications: Ambulatory Orders Biotin 10,000 mcg PO DAILY 04/13/21 Cholecalciferol [Vitamin D3] 25 mcg PO DAILY 04/13/21 Lactobacillus Combination No.4 [Probiotic] 1 each PO DAILY 04/13/21 Metformin HCl [Glumetza] 1,000 mg PO DAILY 04/13/21 Omeprazole 40 mg PO DAILY 04/13/21 Turmeric Root Extract [Turmeric] 500 mg PO DAILY 04/13/21 clonazePAM [KlonoPIN] 0.5 mg PO ONCE PRN 04/13/21 Loratadine [Claritin] 10 mg PO DAILY 12/18/17 Biotin 10,000 mcg PO DAILY 04/13/21 Cholecalciferol [Vitamin D3] 25 mcg PO DAILY 04/13/21 Lactobacillus Combination No.4 [Probiotic] 1 each PO DAILY 04/13/21 Metformin HCl [Glumetza] 1,000 mg PO DAILY 04/13/21 Omeprazole 40 mg PO DAILY 04/13/21 Turmeric Root Extract [Turmeric] 500 mg PO DAILY 04/13/21 clonazePAM [KlonoPIN] 0.5 mg PO ONCE PRN 04/13/21 Allergies/Adverse Reactions: Allergies Allergy/AdvReac Type Severity Reaction Status Date / Time No Known Drug Allergies Allergy Verified 01/30/21 15:14 Anes History & Medical History - Anesthetic History Anesthesia Complications: reports: No previous complications - Medical History Cardiovascular: reports: None Pulmonary: reports: None Gastrointestinal: reports: GERD Urinary: reports: None Musculoskeletal: reports: None Endocrine/Autoimmune: reports: Type 2 diabetes Blood Disorders: reports: Anemia Skin: reports: None Smoking Status: Current every day smoker - Surgical History General: reports: Cholecystectomy Orthopedic: reports: Other Exam General: Alert, Oriented x3 Dental: WNL Mouth Opening: Greater than 4 Fingerbreadths Neck Mobility: Normal Mallampati classification: II Thyromental Distance: greater than 6 cm Respiratory: Lungs clear Cardiovascular: Regular rate Mental/Cognitive Status: Alert/Oriented X3 Plan Anesthesia Type: General Consent for Procedure(s) Verified and Reviewed: Yes Code Status: Attempt Resuscitation ASA classification: 2-Mild systemic disease Is this case an emergency?: No
[2021-04-21] MEDS ORDERED: HYDROmorphone 0.5 MG/0.5 ML SYRINGE IVP PRN (08:12)
[2021-04-21] MEDS ORDERED: ONDANSETRON 4 MG/2 ML VIAL IVP PRN (08:12)
[2021-04-21] MEDS ORDERED: METOCLOPRAMIDE 10 MG/2 ML VIAL IVP PRN (08:12)
[2021-04-21] MEDS ORDERED: fentaNYL 100 MCG/2 ML VIAL IVP PRN (08:12)
[2021-04-21] MEDS ORDERED: ePHEDrine 50 MG/ML VIAL IVP PRN (08:12)
[2021-04-21] MEDS ORDERED: MORPHINE 2 MG/ML CARPUJECT IVP PRN (08:12)
[2021-04-21] MEDS ORDERED: ATROPINE ABBOJECT 1 MG/10 ML SYRINGE IVP PRN (08:12)
[2021-04-21] MEDS ORDERED: NALOXONE 0.4 MG/ML VIAL IVP PRN (08:12)
[2021-04-21 08:20] LABS: HCG UR QUAL NEGATIVE
[2021-04-21] MEDS ORDERED: MIDAZOLAM 2 MG/2 ML VIAL ONE (08:24)
[2021-04-21] MEDS ORDERED: ONDANSETRON 4 MG/2 ML VIAL ONE (08:24)
[2021-04-21] MEDS ORDERED: DEXAMETHASONE 4 MG/ML VIAL ONE (08:24)
[2021-04-21] MEDS ORDERED: fentaNYL 100 MCG/2 ML VIAL ONE (08:24)
[2021-04-21] MEDS ORDERED: PROPOFOL 200 MG/20 ML VIAL IVP ONE (08:25)
[2021-04-21] MEDS ORDERED: LIDOCAINE-MPF 2% 5 ML VIAL ONE (08:25)
[2021-04-21] MEDS ORDERED: LIDOCAINE 2%-EPI 1:100000 20 ML MDV SUBQ ONE (08:43)
[2021-04-21] MEDS ORDERED: LACTATED RINGERS 1,000 ML IV SCH (09:00)
--- NOTE | 2021-04-21 09:22 | OPERATIVE REPORT ---
Operative Report - General Procedure Date: 04/21/21 Planned Procedure: Hysteroscopy D&C with possible polypectomy Pre-Op Diagnosis: Dysfunctional uterine bleeding Procedure Performed: Hysteroscopy D&C with polypectomy Post Op Diagnosis: Same - Procedure Note Primary Surgeon: Marnie Harkins MD Anesthesia Provider: Sourav Sandhu CRNA Pathology: uterine contents IV Fluids (mL): 700 Estimated Blood Loss (mL): 5 Urine Output (mL): 50 Indications: Patient is a 40-year-old G0, P0 here for preop assessment for hysteroscopy D&C and possible polypectomy. Initially seen by Dr. Paul in December 2020 with primary complaint of infertility. Reported heavy menses at time of assessment. Monthly cycles of 5 days duration. Needs to change a pad or tampon every less than 2 hours. Passes large clots about size of a quaarter. Carried extra clothing due to accidents. Plans her life around her period. Hx of anemia. Also endorses dysmenorrhea, rated 9/10 at its worse. She states this will keep her home from work. She will utilize hot water bottle or heating pad as well as 1600 mg of Motrin. Unable to conceive in prior relationship. Pattern continuing with new partner. Endorses deep dyspareunia. Hx of thickened EMS in 2006. US on 02/07/21 shows " Uterus is normal in size at 8.4 x 3.6 x 5.0 cm. There is a mural left mid body fibroid measuring 3.4 x 3.1 x 3.3 cm. The endonnetrium measures 9.8 mm in combined thic kness. There is a small anterior endometrial polyp versus pedunculated fibroid with a feeder vessel measuring 1.2 x 0.6 cm. " Desires to proceed with hysteroscopy D&C. Findings: Uterine cavity with fluffy endometrium and multiple polypoid structures. Bilateral tubal ostia visualized. Normal uterine cavity at close of procedure. Complications: none - Other Other Information/Narrative: Risks benefits and alternatives to the procedure were reviewed. Consent was again confirmed. Patient was taken to the operating room where she underwent general anesthesia. She was positioned in dorsolithotomy position with legs resting in yellowfin stirrups. She was prepped and draped in the usual sterile fashion. Preoperative antibiotics were not indicated. Preoperative checklist was performed. Exam under anesthesia was performed. Speculum was placed in the vagina and the cervix was visualized. Single-tooth tenaculum was placed at the anterior cervical lip. Paracervical block was administered using a total of 20 cc of 2% lidocaine with epinephrine was injected at the 4:00 and 8:00 positions lateral to the portio of the cervix. After attempts to dilate the cervix, the tenaculum was placed on the posterior cervical lip. The cervical os was serially dilated with Hegar dilators to accommodate the caliber of the diagnostic hysteroscope. The hysteroscope was inserted and findings were noted as above. The hysteroscopic morcellator was inserted through the operative port. The intrauterine polyps were morcellated under direct visualization. Uterine cavity was smooth at close of the procedure. Hysteroscope was removed. Sharp curettage D&C was performed with sharp curettage. All instruments were removed from the uterus. Tenaculum was removed. Tenaculum sites were noted to be hemostatic. All instruments were removed from the vagina. Procedure was well-tolerated without complication. Fluid deficit:160
[2021-04-21 10:09] VITALS: BP 109/71
--- NOTE | 2021-04-21 12:53 | ANESTHESIA POST OP EVALUATION ---
Anesthesia Post Eval - Post Anesthesia Eval Vitals: Last Vital Signs Temp 36.0 C L 04/21/21 10:08 Pulse 89 04/21/21 10:08 Resp 16 04/21/21 10:08 BP 109/71 04/21/21 10:08 Pulse Ox 98 04/21/21 10:08 CV Function Including HR & BP: Stable Pain Control: Satisfactory Nausea & Vomiting: Negative Mental Status: Baseline Respiratory Status: Airway Patent Hydration Status: Satisfactory Anesthesia Complications: None
== END 2021-04-21 07:26 | disposition home or self-care (01) ==
LOC: SDS 07:25
PROVIDERS: ATTEND Obstetrics & Gynecology
PROC: 0UDB7ZZ Extraction of Endometrium, Via Natural or Artificial Opening (ICD-10-PCS; 2021-04-21)
PROC: 0UB98ZZ Excision of Uterus, Via Natural or Artificial Opening Endoscopic (ICD-10-PCS; principal; 2021-04-21 08:30)
DX: N92.0 Excessive and frequent menstruation with regular cycle (principal); N93.8 Other specified abnormal uterine and vaginal bleeding; D25.9 Leiomyoma of uterus, unspecified; N84.0 Polyp of corpus uteri; N94.12 Deep dyspareunia; N94.6 Dysmenorrhea, unspecified; N97.9 Female infertility, unspecified; E66.9 Obesity, unspecified; Z68.35 Body mass index [BMI] 35.0-35.9, adult; F17.200 Nicotine dependence, unspecified, uncomplicated
CPT/HCPCS: 58558; 81025; A9270; J7120

== ENCOUNTER 2022-02-10 12:46 | Outpatient (CLI) | payer OTHER ==
--- NOTE | 2022-02-10 17:56 | XRAY Report ---
PROCEDURE: Ankle 3 View RT INDICATIONS: SPRAIN OF LIGAMENT OF R ANKLE TECHNIQUE: 3 views of the ankle were acquired. COMPARISON: None FINDINGS: Bones: Expected appearance of orthopedic hardware. Medial and lateral orthopedic fixation. Surgical h ardware intact. No evidence of hardware failure or loosening. No acute fracture or dislocation. Mild posttraumatic degenerative arthritis. No fractures or dislocations. Ankle mortise is normally aligne d. No suspicious bony lesions. Soft tissues: No tibiotalar joint effusion. Achilles tendon appears normal. IMPRESSION: Expected appearance of orthopedic hardware. No evidence of acute bony abnormality of the right ankle. Mild degenerative arthritis. Reviewed by: Taurus Arguello MD on 02/10/2022 5:55 PM PDT Approved by: Taurus Arguello MD on 02/10/2022 5:55 PM PDT Station ID: [id number]
== END 2022-02-10 23:59 | disposition home or self-care (01) ==
LOC: DI.N 12:46
PROVIDERS: ATTEND Physician Assistant Medical
DX: S93.491A Sprain of other ligament of right ankle, initial encounter (principal); M19.071 Primary osteoarthritis, right ankle and foot

== ENCOUNTER 2022-06-14 08:00 | Outpatient (CLI) | payer OTHER ==
[2022-06-14 18:03] LABS: BASOPHILS % (AUTO) 0.4 %; EOSINOPHILS # (AUTO) 0.1 10^3/uL (0.0-0.7); EOSINOPHILS % (AUTO) 1.4 %; HCT - HEMATOCRIT 40.6 % (37.0-47.0); HGB - HEMOGLOBIN 13.1 g/dL (12.0-16.0); LYMPHOCYTES # (AUTO) 2.1 10^3/uL (1.5-3.5); LYMPHOCYTES % (AUTO) 23.3 %; MEAN CORPUSCULAR HEMOGLOBIN 28.7 pg (27.0-31.0); MEAN CORPUSCULAR HGB CONC 32.3 g/dL (32.0-36.0); MEAN CORPUSCULAR VOLUME 88.8 fL (81.0-99.0); MEAN PLATELET VOLUME 10.9 fL (7.9-10.8); MONOCYTES # (AUTO) 0.5 10^3/uL (0.0-1.0); MONOCYTES % (AUTO) 5.9 %; NEUTROPHILS # (AUTO) 6.3 10^3/uL (1.5-6.6); NEUTROPHILS % (AUTO) 68.6 %; PLT - PLATELET COUNT 305 10^3/uL (130-450); RED BLOOD COUNT 4.57 10^6/uL (4.20-5.40); RED CELL DISTRIBUTION WIDTH 12.7 % (12.0-15.0); WHITE BLOOD COUNT 9.2 x10^3/uL (4.8-10.8)
== END 2022-06-14 23:59 | disposition home or self-care (01) ==
LOC: LAB.N 08:00
PROVIDERS: ATTEND Registered Nurse
DX: N93.9 Abnormal uterine and vaginal bleeding, unspecified (principal)
CPT/HCPCS: 36415; 84702; 85025